=== PATIENT | female | born 1970 ===

== ENCOUNTER 2021-03-09 20:30 | Emergency (ER) | payer OTHER, MEDICARE ==
[2021-03-09] MEDS ORDERED: Morphine 4 MG/ML VIAL IVPUSH STA (20:35)
[2021-03-09] MEDS ORDERED: Labetalol 20 MG/4 ML Syringe IVPUSH ONE (20:39)
[2021-03-09] MEDS: Sodium Chloride 0.9% 10 ML Syringe FLUSH PRN (20:45)
[2021-03-09] MEDS ORDERED: Sodium Chloride 0.9% 1,000 ML IV SCH (20:45)
[2021-03-09] MEDS ORDERED: Labetalol 20 MG/4 ML Syringe IVPUSH STA (20:54)
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
[2021-03-09] MEDS ORDERED: Iopamidol 755 Mg/ML 100 ML Bottle IV ONE (22:44)
[2021-03-09] MEDS ORDERED: Ketorolac 30 MG/ML SDV IVPUSH STA (23:45)
[2021-03-10] MEDS ORDERED: Ketorolac 30 MG/ML SDV ONE (03:39)
[2021-03-10] MEDS: Sodium Chloride 0.9% 10 ML Syringe FLUSH PRN (03:40)
== END 2021-03-10 03:55 | disposition home or self-care (01) ==
LOC: FB.ED 20:30
DX: S42.002A Fracture of unspecified part of left clavicle, initial encounter for closed fracture (principal); Z88.0 Allergy status to penicillin; Z88.8 Allergy status to other drugs, medicaments and biological substances; V49.40XA Driver injured in collision with unspecified motor vehicles in traffic accident, initial encounter; Y92.410 Unspecified street and highway as the place of occurrence of the external cause
CPT/HCPCS: 36415; 70450; 71260; 72125; 73030-LT; 74177; 80053; 85025; 85610; 85730; 93005; 96374; 96375; 99285-25; J1885; J2270; J3490; J7030; Q9967